=== PATIENT | male | born 2000 | race Two or more races ===

== ENCOUNTER 2021-09-07 12:09 | Emergency (ER) | payer OTHER ==
[~2021-09-07] VITALS: Ht 167.6 cm; Wt 72.6 kg
[2021-09-07] MEDS ORDERED: [UNRECOGNIZED DRUG - OTHER] (12:48)
== END 2021-09-07 15:03 | disposition home or self-care (01) ==
LOC: ER 12:09
DX: B34.9 Viral infection, unspecified (principal); Z03.818 Encounter for observation for suspected exposure to other biological agents ruled out

== ENCOUNTER 2022-09-14 06:53 | Emergency (ER) | payer OTHER ==
[~2022-09-14] VITALS: Ht 165.1 cm; Wt 69.4 kg
[~2022-09-14 06:53] MED LIST: [UNRECOGNIZED DRUG - OTHER]
== END 2022-09-14 09:54 | disposition home or self-care (01) ==
LOC: ER 06:53
DX: S01.511A Laceration without foreign body of lip, initial encounter (principal); X58.XXXA Exposure to other specified factors, initial encounter; Y92.009 Unspecified place in unspecified non-institutional (private) residence as the place of occurrence of the external cause